=== PATIENT | female | born 1970 | race Caucasian/White ===

== ENCOUNTER 2017-06-11 05:27 | Day surgery (SDC) | payer OTHER ==
[~2017-06-11] VITALS: Ht 177.8 cm; Wt 97.5 kg
--- NOTE | ~2017-06-11 | S ---
[facility] [place] [address] SURGICAL PATH RPT PROCEDURE Name: ALEXANDER HERRERA Room #: DEP [facility] M..#: [id number] Admission: 06/11/17 Date of : 68 Discharge: 06/11/17 Report #: [id number] Path Case #: [id number] PATHOLOGY REPORT COLLECTION DATE: 06/11/2017 RECEIVED DATE: 06/11/2017 SUBMITTING PHYS: Dr. Agustin Lynn, OTHER PHYS: Dr. Miguel Angel Bedoya SPECIMEN(S) RECEIVED: A.Left labia mass * * * * * * * * * * * * FINAL DIAGNOSIS: "Left labia mass," excision: - Skin and subcutaneous tissue with acute and chronic inflammation, necrosis, granulation tissue, foreign body type giant cell response, and keratin debris consistent with ruptured epidermal inclusion cyst. (CLW:; 06/14/2017) PATHOLOGIST: Queta Prather M.D. REPORT ELECTRONICALLY SIGNED BY: Queta Prather M.D. DATE/TIME: 06/14/2017 22:00 * * * * * * * * * * * * GROSS PATHOLOGY: Received in formalin labeled "Alexander Herrera, left labial mass" and consists of an irregularly shaped, rubbery, and yellow orange fatty appearing soft tissue mass, 3.0 x 2.2 x 1.5 cm. There is a segment of rivas skin at one surface that measures 1.5 x 0.8 cm. The surgical margin is inked black. The specimen is serially sectioned parallel to long axis. There is a yellow orange nodule identified that measures 0.5 x 0.5 x 0.4 cm and grossly abuts a margin. The remaining cut surfaces are rivas to firm and yellow orange to soft. The specimen is entirely submitted A1-A3. (TANNER; 06/11/2017) CLINICAL HISTORY: Perineal abscess INITIAL CPT CODE(S): 10237 Professional services performed by [facility] at [address] [place] [address] [address] SURGICAL PATH RPT PROCEDURE Name: ALEXANDER HERRERA Room #: DEP [facility] M.R.#: [id number] Admission: 06/11/17 Date of : 68 Discharge: 06/11/17 Report #: [id number] Path Case #: [id number] Technical services performed by [facility] at [address] [place] [address], [facility] [address], [place] [address]. [facility] [address] [place] [address] PHONE: [phone] DIRECTOR: Oracio Moctezuma M.D. * * * END OF REPORT * * *
[2017-06-11 08:30] VITALS: BP 122/73
[2017-06-11 08:45] LABS: HEMATOCRIT 35.2 % (37.0-47.0); HEMOGLOBIN 11.4 gm/dL (12.0-15.0)
[2017-06-19] MEDS ORDERED: NORCO 5-325 TA1 EACH PO (11:27)
[2017-06-19] MEDS ORDERED: IBUPROFEN 600600 M1 PO (11:27)
[2017-06-19] MEDS ORDERED: AUGMENTIN 875-1 EACH PO (11:27)
== END 2017-06-11 12:13 | disposition home or self-care (01) ==
LOC: OR 05:27 → TBA 05:27 → OR 10:12
PROVIDERS: Student in an Organized Health Care Education/Training Program
DX: L72.0 Epidermal cyst (principal); L08.89 Other specified local infections of the skin and subcutaneous tissue; Z90.710 Acquired absence of both cervix and uterus; Z98.890 Other specified postprocedural states; Z87.442 Personal history of urinary calculi
CPT/HCPCS: 50010; 50101; 50386; 54118; 56526; 62110; 62900; 70005